=== PATIENT | female | born 1975 | race American Indian/Alaskan Native ===

== ENCOUNTER 2016-09-28 00:50 | Emergency (ER) | payer OTHER ==
[2016-09-28 01:51] LABS: Basophils % (Auto) 0.5 % (0.0-1.8); Eosinophils % (Auto) 1.6 % (0.0-4.3); Mean Corpuscular HGB Conc 30 % (30-34); Platelet Count 435 K/mm3 (140-440); Red Blood Count 4.52 M/mm3 (3.65-5.03); White Blood Count 5.2 K/mm3 (4.5-11.0)
[2016-09-28 01:52] LABS: Hematocrit 28.2 % (30.3-42.9); Hemoglobin 8.3 gm/dl (10.1-14.3); Mean Corpuscular Volume 62 fl (79-97)
[2016-09-28 01:53] LABS: Mean Corpuscular Hemoglobin 18 pg (28-32)
[2016-09-28 02:00] LABS: INR 0.99 (0.87-1.13)
[2016-09-28 02:01] LABS: Partial Thromboplastin Time 27.5 Sec. (24.2-36.6)
[2016-09-28 02:09] LABS: Anion Gap 16 mmol/L; BUN/Creatinine Ratio 23.33; Blood Urea Nitrogen 14 mg/dL (7-17); Calcium 8.9 mg/dL (8.4-10.2); Carbon Dioxide 23 mmol/L (22-30); Chloride 100.4 mmol/L (98-107); Glucose 108 mg/dL (65-100); Potassium 3.6 mmol/L (3.6-5.0); Sodium 136 mmol/L (137-145)
--- NOTE | 2016-09-28 09:56 | Emergency Department Report ---
ED Extremity Problem HPI - General Chief complaint: Extremity Injury, Lower Stated complaint: PAIN/SWELLING LF LEG Time Seen by Provider: 09/28/16 09:40 Source: patient, RN notes reviewed Mode of arrival: Ambulatory Limitations: No Limitations - History of Present Illness Initial comments: 41-year-old female presents to the emergency department complaining of left leg pain and swelling. Patient reports a history of left lower leg fracture in May of this year. She states she was treated by an orthopedist and also underwent physical therapy. She reports swelling began approximately one month ago. Initially, the swelling was intermittent. Over the past several days, the swelling has become constant. She describes the pain as a tight feeling in her leg. Patient states she was initially seen by the orthopedic doctor and was told that everything was fine. She was still having symptoms and went to an urgent care last night. She was sent to emergency department to rule out DVT. There are no other complaints. MD Complaint: extremity swelling -: Gradual, month(s) (1) Location: left, lower extremity History of Same: No -: Yes myalgia, No fever, No associated dyspnea, No associated chest pain Radiation: none Severity scale (0 -10): 9 Quality: aching Consistency: constant Improves with: nothing Worsens with: nothing Associated Symptoms: denies other symptoms - Related Data Previous Rx's Medication Instructions Recorded Last Taken Type Apixaban [Eliquis] 5 mg PO DAILY #30 tablet 09/28/16 Unknown Rx Apixaban [Eliquis] 10 mg PO BID #14 tablet 09/28/16 Unknown Rx traMADol [Ultram] 50 mg PO Q6HR PRN #20 tablet 09/28/16 Unknown Rx Allergies Allergy/AdvReac Type Severity Reaction Status Date / Time No Known Allergies Allergy Unverified 09/28/16 01:32 ED Review of Systems ROS: Stated complaint: PAIN/SWELLING LF LEG Other details as noted in HPI Comment: All other systems reviewed and negative Cardiovascular: edema Musculoskeletal: as per HPI, myalgia ED Past Medical Hx - Past Medical History Previous Medical History?: No Additional medical history: Fractured Right leg - Surgical History Past Surgical History?: No - Family History Family history: no significant - Social History Smoking Status: Never Smoker Substance Use Type: None - Medications Home Medications: Home Medications Medication Instructions Recorded Confirmed Last Taken Type Apixaban [Eliquis] 5 mg PO DAILY #30 tablet 09/28/16 Unknown Rx Apixaban [Eliquis] 10 mg PO BID #14 tablet 09/28/16 Unknown Rx traMADol [Ultram] 50 mg PO Q6HR PRN #20 tablet 09/28/16 Unknown Rx ED Physical Exam - General Limitations: No Limitations General appearance: alert, in no apparent distress - Head Head exam: Present: atraumatic, normocephalic - Eye Eye exam: Present: normal appearance, PERRL, EOMI - ENT ENT exam: Present: normal exam, normal orophraynx, mucous membranes moist - Neck Neck exam: Present: normal inspection, full ROM. Absent: tenderness - Respiratory Respiratory exam: Present: normal lung sounds bilaterally. Absent: respiratory distress - Cardiovascular Cardiovascular Exam: Present: regular rate, normal rhythm, normal heart sounds - GI/Abdominal GI/Abdominal exam: Present: soft, normal bowel sounds. Absent: distended, tenderness - Extremities Exam Extremities exam: Present: full ROM, other (2+ pitting edema noted to the left lower extremity from the ankle to above the knee. Faint ecchymosis noted over the left medial malleolus.) - Back Exam Back exam: Present: normal inspection, full ROM. Absent: tenderness - Neurological Exam Neurological exam: Present: alert, oriented X3. Absent: motor sensory deficit - Skin Skin exam: Present: warm, dry, intact ED Course Vital Signs 09/28/16 09/28/16 09/28/16 01:16 08:00 08:04 Temperature 97.3 F L 97.8 F Pulse Rate 86 75 Respiratory 16 16 16 Rate Blood Pressure 153/98 Blood Pressure 153/98 130/82 [Left] O2 Sat by Pulse 100 100 100 Oximetry ED Medical Decision Making - Lab Data Result diagrams: 09/28/16 01:36 09/28/16 01:36 - Radiology Data Radiology results: report reviewed Doppler ultrasound of the left lower extremity reveals a nonocclusive, acute DVT extending from the superficial femoral vein down into the calf. - Medical Decision Making Lab and imaging results reviewed and discussed with the patient. Vascular surgery was consulted and the patient was discussed. Patient will be treated with outpatient anticoagulation for her provoked DVT (secondary to a recent fracture and subsequent treatment). Patient will be discharged home at this time to follow up with hematology as an outpatient. - Differential Diagnosis DVT, peripheral edema Critical care attestation.: If time is entered above; I have spent that time in minutes in the direct care of this critically ill patient, excluding procedure time. ED Disposition Clinical Impression: DVT (deep venous thrombosis) Qualifiers: DVT location: lower extremity Affected thrombotic vein of extremity: femoral Laterality: left Chronicity: acute Qualified Code(s): I82.412 - Acute embolism and thrombosis of left femoral vein Disposition: DISCHARGED TO HOME OR SELFCARE Is pt being admited?: No Condition: Stable Instructions: Deep Venous Thrombosis (ED) Prescriptions: Apixaban [Eliquis] 10 mg PO BID #14 tablet Apixaban [Eliquis] 5 mg PO DAILY #30 tablet traMADol [Ultram] 50 mg PO Q6HR PRN #20 tablet PRN Reason: Pain Referrals: KINGSLEY LUIS MD [Staff Physician] - 3-5 Days Time of Disposition: 12:22
[2016-09-28 12:46] VITALS: BP 122/79
--- NOTE | 2016-09-29 11:20 | Vascular Lab Report ---
Left Lower Extremity Venous Duplex Study: Reason for Exam: Pain and swelling of the left lower extremity. Comments on the Right: A limited duplex study was done of the proximal veins of the right lower extremity. All veins visualized are freely compressible without evidence of internal echogenicity. Flow is spontaneous and phasic throughout. No evidence of acute or chronic thrombus is seen in any of the vessels visualized. Comments on the Left: There is an acute nonocclusive deep venous thrombus in the left femoral vein extending from the central most portion of the femoral vein inferiorly into the left popliteal vein and peroneal vein. The remaining veins visualized are freely compressible without evidence of internal echogenicity. Spontaneous and phasic flow is diminished proximally. Impression: Acute left lower extremity nonocclusive deep venous thrombus.
== END 2016-09-28 12:46 | disposition home or self-care (01) ==
LOC: ED 00:50
DX: I82.412 Acute embolism and thrombosis of left femoral vein (principal)
CPT/HCPCS: 36415; 80048; 84703; 85025; 85610; 85730; 99284

== ENCOUNTER 2017-01-04 12:10 | Outpatient (CLI) | payer OTHER ==
--- NOTE | 2017-01-05 09:08 | Vascular Lab Report ---
Left Lower Extremity Venous Duplex Study: Reason for Exam: History of DVT/swelling of the left lower extremity. Comments on the Right: A limited duplex study was done of the proximal veins of the right lower extremity. All veins visualized are freely compressible without evidence of internal echogenicity. Flow is spontaneous and phasic throughout. No evidence of acute or chronic thrombus is seen in any of the vessels visualized. Comments on the Left: Nonocclusive chronic appearing deep venous thrombosis noted of the popliteal vein.. The remaining veins visualized are freely compressible without evidence of internal echogenicity. Spontaneous and phasic flow is present proximally. Impression: Chronic venous thrombosis in the left lower extremity
== END 2017-01-04 12:11 | disposition home or self-care (01) ==
LOC: SPVWC 12:10
PROVIDERS: ATTEND Internal Medicine Hematology & Oncology
DX: I82.532 Chronic embolism and thrombosis of left popliteal vein (principal); D64.9 Anemia, unspecified